=== PATIENT | female | born 1990 | race Caucasian/White ===

== ENCOUNTER 2018-06-28 18:21 | Emergency (ER) | payer OTHER ==
[~2018-06-28] VITALS: Ht 167.6 cm; Wt 106.0 kg
[2018-06-28] MEDS ORDERED: MORPHINE SULFATE 4 MG/ML CPJ (NOT FOR IM USE) IV STA (19:03)
[2018-06-28] MEDS ORDERED: SODIUM CHLORIDE 0.9% 1,000 ML IV ONE (19:03)
[2018-06-28] MEDS ORDERED: KETOROLAC 30MG/ML VIAL IV STA (19:03)
[2018-06-28] MEDS ORDERED: ONDANSETRON HCL 4MG/2ML INJ IV STA (19:03)
[2018-06-28 19:28] LABS: CHLORIDE 107 mEq/L (98-107)
[2018-06-28 19:29] LABS: BASOPHILS % 0.4 % (0.0-2.0); EOSINOPHILS % 0.4 % (0.0-5.0); HEMOGLOBIN. 12.9 g/dL (12.0-16.0); LYMPHOCYTES % 19.6 % (20.0-50.0); MEAN CORPUSCULAR HEMOGLOBIN 27.6 pg (28.0-32.0); MEAN CORPUSCULAR VOLUME 81.1 fL (81.0-99.0); MONOCYTES % 5.1 % (2.0-8.0); NEUTROPHILS % 74.5 % (40.0-76.0); PLATELET 274 x1000/uL (130-400); RED BLOOD CELL COUNT 4.69 mill/uL (4.2-5.4); RED CELL DISTRIBUTION WIDTH 13.9 % (11.6-14.6)
[2018-06-28 19:56] LABS: B-HCG QUANTITATIVE 5271 mIU/mL (<3)
[2018-06-28 20:39] LABS: CLARITY URINE TURBID (CLEAR); COLOR URINE RED (YELLOW); KETONES URINE NEGATIVE (NEGATIVE); LEUKOCYTE ESTERASE URINE 2+ (NEGATIVE); NITRITE URINE POSITIVE (NEGATIVE); OCCULT BLOOD URINE 3+ (NEGATIVE); PROTEIN URINE 2+ (NEGATIVE); SPECIFIC GRAVITY URINE 1.018 (1.005-1.030); UROBILINOGEN URINE 0.2 E.U./dL (0.2-1.0)
[2018-06-28] MEDS ORDERED: ONDANSETRON HCL 4MG/2ML INJ IV ONE (21:00)
[2018-06-28] MEDS ORDERED: MORPHINE SULFATE 4 MG/ML CPJ (NOT FOR IM USE) IV ONE (21:00)
[2018-06-29 02:11] VITALS: BP 110/50
== END 2018-06-29 02:17 | disposition home or self-care (01) ==
LOC: ER 18:21
DX: O03.9 Complete or unspecified spontaneous abortion without complication (principal); O23.41 Unspecified infection of urinary tract in pregnancy, first trimester; Z3A.10 10 weeks gestation of pregnancy; Z88.0 Allergy status to penicillin
CPT/HCPCS: 36415; 76801; 76817; 80053; 81003; 83690; 84702; 85025; 85610; 86850; 86900; 86901; 96374; 96375; 96376; 99284; J1885; J2270; J2405; J7030

== ENCOUNTER 2021-12-21 01:16 | Emergency (ER) | payer OTHER ==
[~2021-12-21] VITALS: Ht 167.6 cm; Wt 80.0 kg
[2021-12-21] MEDS ORDERED: MAGNESIUM/ALUMINUM HYDROXIDE/SIMETHICONE 30ML UDC PO STA (02:05)
[2021-12-21 03:02] LABS: BASOPHILS % 0.4 % (0.0-2.0); EOSINOPHILS % 1.6 % (0.0-5.0); HEMATOCRIT. 40.8 % (36.0-48.0); HEMOGLOBIN. 13.4 g/dL (12.0-16.0); LYMPHOCYTES % 15.6 % (20.0-50.0); MEAN CORPUSCULAR HEMOGLOBIN 26.2 pg (28.0-32.0); MEAN CORPUSCULAR VOLUME 79.5 fL (81.0-99.0); MEAN PLATELET VOLUME 8.7 fl (7.4-10.4); MONOCYTES % 5.9 % (2.0-8.0); NEUTROPHILS % 76.5 % (40.0-76.0); PLATELET 251 x1000/uL (130-400); RED BLOOD CELL COUNT 5.13 mill/uL (4.2-5.4)
[2021-12-21 03:23] LABS: CHLORIDE 106 mEq/L (98-107)
[2021-12-21] MEDS ORDERED: KETOROLAC 30MG/ML VIAL IV ONE (03:45)
[2021-12-21] MEDS ORDERED: ONDA4TAB50 MT (04:28)
[2021-12-21] MEDS ORDERED: HYDR-4001 MT (04:28)
[2021-12-21 04:50] VITALS: BP 116/60
== END 2021-12-21 05:05 | disposition home or self-care (01) ==
LOC: ER 01:23
DX: K80.20 Calculus of gallbladder without cholecystitis without obstruction (principal)
CPT/HCPCS: 36415; 76705; 80053; 83690; 85025; 96374; 99284; J1885